=== PATIENT | female | born 1940 | race Two or more races ===

== ENCOUNTER 2022-05-30 12:45 | Inpatient (IN) | payer MEDICARE, OTHER ==
[~2022-05-30] VITALS: Ht 165.1 cm; Wt 62.6 kg
--- NOTE | 2022-05-30 13:03 | NUR ---
[facility], ALOC with hypoglycemia. BS - 50, 1 amp D50 IVP x 1 given in the field.
--- NOTE | 2022-05-30 13:15 | NUR ---
BLOOD DRAWN AND SENT TO LAB
--- NOTE | 2022-05-30 13:21 | NUR ---
urine - sent to lab
[2022-05-30] MEDS ORDERED: IV NS 0.9% 1,000 ML BAG IV ONE (13:30)
[2022-05-30 13:43] LABS: BASOPHILS # (AUTO) 0.1 K/uL (0.0-0.2); HEMATOCRIT 34 % (33-45); HEMOGLOBIN 11.3 g/dL (11.5-14.8); LYMPHOCYTES # (AUTO) 1.8 K/uL (0.8-4.8); LYMPHOCYTES % (AUTO) 21.8 % (20.0-44.0); MEAN CORPUSCULAR HGB CONC 33 g/dl (31.0-36.0); MEAN CORPUSCULAR VOLUME 98 fL (82-100); MONOCYTES # (AUTO) 0.3 K/uL (0.1-1.30); MONOCYTES % (AUTO) 3.1 % (2.0-12.0); NEUTROPHILS # (AUTO) 6.1 K/uL (1.8-8.9); NEUTROPHILS % (AUTO) 73.1 % (43.0-81.0); PLATELET COUNT (AUTO) 214 K/uL (150-450); RED BLOOD CELL COUNT(AUTO) 3.46 MIL/uL (4.0-5.2); WHITE BLOOD COUNT (AUTO) 8.3 K/uL (4.3-11.0)
[2022-05-30] MEDS ORDERED: DEXTROSE 50%-WATER 50 ML DISP.SYRIN ONE (13:56)
[2022-05-30 13:58] LABS: CALCIUM, SERUM 9.2 mg/dL (8.5-10.1); CARBON DIOXIDE 26 mmol/L (21-32); CHLORIDE 101 mmol/L (98-107); GLUCOSE 82 mg/dL (74-106); POTASSIUM 3.7 mmol/L (3.5-5.1); SODIUM SERUM 134 mmol/L (136-145); UREA NITROGEN, BLOOD 25 mg/dL (7-18)
[2022-05-30] MEDS ORDERED: DEXTROSE 50%-WATER 50 ML DISP.SYRIN IVP ONE (14:00)
--- NOTE | 2022-05-30 14:00 | NUR ---
RECHECKED GLU- 52 MD MADE AWARE ORDERS DEXTROSE 50% 25MLS GIVEN.
[2022-05-30 14:03] LABS: ALANINE AMINOTRANSFERASE 15 U/L (12-78); ALBUMIN 3.1 g/dL (3.4-5.0); ALKALINE PHOSPHATASE 84 U/L (46-116); ASPARTATE AMINOTRANSFERASE 20 U/L (15-37); BILIRUBIN,DIRECT 0.2 mg/dL (0.0-0.2); BILIRUBIN,TOTAL 0.6 mg/dL (0.2-1.0); TOTAL PROTEIN, SERUM 7.2 g/dL (6.4-8.2)
--- NOTE | 2022-05-30 14:10 | NUR ---
PATIENT TAKEN TO CT [facility]IA [facility]
--- NOTE | 2022-05-30 14:15 | NUR ---
PT RETURNED FROM [facility]IA [facility]
[2022-05-30 14:37] LABS: BILIRUBIN,URINE NEGATIVE (NEGATIVE); COLOR,URINE YELLOW (YELLOW); LEUKOCYTE ESTERASE ,URINE 1+ (NEGATIVE); NITRITE, URINE POSITIVE (NEGATIVE); PH,URINE 6.5 (5.0-8.0); PROTEIN,URINE 2+ mg/dl (NEGATIVE); UGLUCOSE NEGATIVE (NEGATIVE); UROBILINOGEN,URINE 0.2 EU/dL (0.2)
[2022-05-30] MEDS ORDERED: GLIP10TA11 PO (14:42)
[2022-05-30] MEDS ORDERED: HYDR100T27 PO (14:42)
[2022-05-30] MEDS ORDERED: MINO2.5T PO (14:42)
[2022-05-30] MEDS ORDERED: CLON1PAT14 TD (14:42)
[2022-05-30] MEDS ORDERED: GABA600T12 PO (14:42)
[2022-05-30] MEDS ORDERED: METF-440 PO (14:42)
[2022-05-30] MEDS ORDERED: ATOR10TA PO (14:42)
[2022-05-30] MEDS ORDERED: MULT-1200 PO (14:42)
[2022-05-30] MEDS ORDERED: CARV6.252 PO (14:42)
[2022-05-30] MEDS ORDERED: AMLO-213 PO (14:42)
[2022-05-30] MEDS ORDERED: ESCI5TAB PO (14:42)
--- NOTE | 2022-05-30 15:02 | NUR ---
SWAB FOR COVID19 SENT TO LAB
[2022-05-30 16:12] LABS: BACTERIA,URINE 4+ /HPF (None Seen)
[2022-05-30 16:13] LABS: TRIPLE PHOSPHATE CRYSTAL,UR Few /HPF (None Seen)
--- NOTE | 2022-05-30 16:29 | NUR ---
ROOM 327-2
[2022-05-30] MEDS ORDERED: ONDANSETRON HCL/PF 4 MG/2 ML VIAL IVP PRN (17:00)
[2022-05-30] MEDS ORDERED: IV NS 0.9% 1,000 ML IV SCH (17:00)
[2022-05-30] MEDS ORDERED: ACETAMINOPHEN 325 MG TABLET PO PRN (17:00)
[2022-05-30] MEDS ORDERED: CEFTRIAXONE 1GM BAG (ER ONLY) 1 GM/50 ML PIGGYBACK IV ONE (17:00)
[2022-05-30] MEDS ORDERED: DEXTROSE 50%-WATER 50 ML DISP.SYRIN IV PRN (17:00)
--- NOTE | 2022-05-30 17:04 | NUR ---
REPORT GIVEN TO AMMY RN ROOM 327-2 FOR ANKITA
--- NOTE | 2022-05-30 17:15 | NUR ---
RN NOTE PATIENT ARRIVED FROM ED FOR ADMISSION FOR HYPOGLYCEMIA. BEGIN ADMISSION PROCESS.
--- NOTE | 2022-05-30 17:16 | NUR ---
RADIOCOMMUNICATIONS TECHNICIAN NOTE- 81 Y/O FEMALE BROUGHT IN FROM ED FOR HYPOGLYCEMIA. ACCDORIE BS - 50. .PT IS FC WITH IODINE ALLERGY. PAST MEDICAL HX- DEMENTIA, HTN, UTI, DEPRESSION. NO COVID VACCS, PNA VACC IN 2017, GALLBLADDER SURG AND IN PAST. VS- BP- 126/66, HR- SR 68, RR- 18, T- 97.90, SATS 2 97% RA. NO COVID VACCINES REPORTED. AOX1, CONFUSED, SKIN INTACT, PT ON WCR AT HOME FOR MOBILITY. FAMILY AT BEDSIDE TO UPDATE ON HX. ORDERS RECEIVED AND COMPLIED WITH, SIDE RAILS UP, CALLIGHT IN REACH, MONITOR/ ASSIST
[2022-05-30] MEDS: BLOOD SUGAR DIAGNOSTIC 1 EACH STRIP IN SCH ×2 (17:30→22:00)
[2022-05-30 18:31] VITALS: BP 148/76
--- NOTE | 2022-05-30 18:48 | NUR ---
RN NOTE- IVF TO BE D5 1/2 NS AT 75/HR. PER DR SALAZAR.
--- NOTE | 2022-05-30 18:58 | NUR ---
MOLD CHECKER CLOSING NOTE PATIENT AWAKE IN BED. ALERT AND ORIENTED X1 WITH PERIODS OF CONFUSION. BREATHING EVEN AND NON LABORED. NO C/O PAIN OR DISCOMFORT THROUGHOUT THE SHIFT. ON TELE MONITORING WITH CURRENT READING OF SR. WITH IV ACCESS ON R FOREARM 20G, INTACT AND PATENT. SAFETY MEASURES IN PLACE. KEPT BED IN LOCKED AND IN LOW POSITION. SIDE RAILS UP X3. BED ALARM ON. CALL LIGHT WITHIN EASY REACH. ALL NURSING NEEDS ATTENDED. ENDORSED TO INCOMING SHIFT FOR CONTINUITY OF CARE.
--- NOTE | 2022-05-30 19:15 | NUR ---
SPANISH INSTRUCTOR OPENING NOTE PATIENT IS LYING IN BED. SHE IS AWAKE BUT VERY CONFUSED. SHE IS ON RA, TOLERATED WELL. NO S/S OF DISTRESS OR SOB. PATIENT HAS IV ACCESS AT HER RIGHT FA, #2OG, RUNNING ANTIBIOTICS NOW. IV SITE IS PATENT AND INTACT. 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 SAFETY MEASURES ARE IN PLACE: BED IN LOWEST AND LOCKED POSITION; CALL LIGHT AND TABLE ARE WITHIN REACH; SIDE RAILS UP X 3. WILL CONTINUE MONITORING THE PATIENT AND PROVIDE THE CARE PT NEEDS.
[2022-05-30] MEDS ORDERED: CEFTRIAXONE 1GM BAG (ER ONLY) 50 ML IV ONE (19:17)
--- NOTE | 2022-05-30 19:23 | NUR ---
RN NOTE CONTACTED ER REGARDING ROCEPHIN IV WHETHER IS GIVEN OR NOT, CLARIFIED WITH FELIX, ROCEPHIN DOSE WAS NOT GIVEN AT ER. RECEIVED AND ADMINISTERED ROCEPHIN IV DOSE OF 1700 AT 1923.
[2022-05-30] MEDS: IV D5/0.45 NACL 1,000 ML IV SCH (19:58)
[2022-05-30 20:00] VITALS: BP 136/63
[2022-05-30] MEDS: ATORVASTATIN 10 MG TABLET PO SCH (21:28)
--- NOTE | 2022-05-30 21:30 | NUR ---
SALES AMBASSADOR NOTE TOOK OUT THE WRONG DOSAGE OF MEDICATION FROM THE OMNICELL, GABAPENTIN 400 MG X 2 CAPSULES. RETURNED THE MEDICATIONS THROUGH THE OMNICELL AND TOOK OUT THE CORRECT MEDICATION, GABAPENTIN 300 MG X 2 CAPSULES. ADMINISTERED THE CORRECT MEDICATIONS TO THE PATIENT.
[2022-05-30] MEDS: GABAPENTIN 300 MG CAPSULE PO SCH (21:33)
[2022-05-31] VITALS: BP 120/58
[2022-05-31 04:00] VITALS: BP 123/59
[2022-05-31] MEDS: BLOOD SUGAR DIAGNOSTIC 1 EACH STRIP IN SCH ×4 (06:30→21:26)
--- NOTE | 2022-05-31 06:55 | NUR ---
MICROWAVE RADIO TECHNICIAN CLOSING NOTE PATIENT IS SLEEPING IN BED, EASILY BEING AROUSED. SHE IS VERY CONFUSED. SHE IS ON RA, TOLERATED WELL. NO S/S OF DISTRESS OR SOB. PATIENT HAS IV ACCESS AT HER RIGHT FA, #2OG, RUNNING D5 1/2NS @75 ML/HR. IV SITE IS PATENT AND INTACT. 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 SAFETY MEASURES ARE IN PLACE: BED IN LOWEST AND LOCKED POSITION; CALL LIGHT AND TABLE ARE WITHIN REACH; SIDE RAILS UP X 3. WILL ENDORSE NEXT SHIFT NURSE FOR CONTINUING PT CARE.
[2022-05-31 07:00] VITALS: BP 125/80
--- NOTE | 2022-05-31 07:09 | NUR ---
DOORMAKER OPENING NOTES RECEIVED PATIENT AWAKE IN BED, A/Ox1, YI SPEAKING. ON ROOM AIR NO S/S OF RESPIRATORY DISTRESS. ON TELE MONITORING SHOWING SINUS RHYTHM W/ 1ST DEGREE BLOCK HR 79. NO S/S OF RESPIRATORY DISTRESS. IV ACCESS R FA #20 RUNNING D5 1/2 NS @75 ML/HR. PATIENT HAS BILATERAL MITTENS, SKIN INTACT, CIRCULATION WNL. SKIN INTACT. SAFETY MEASURES IN PLACE: BED LOCKED AND IN LOWEST POSITION, SIDE RAILS UPx3, CALL LIGHT WITHIN REACH, HOB ELEVATED. TANVIR CONTINUE TO MONITOR.
[2022-05-31 07:14] LABS: BASOPHILS % (AUTO) 0.6 % (0.0-2.0); HEMATOCRIT 30 % (33-45); LYMPHOCYTES # (AUTO) 2.3 K/uL (0.8-4.8); LYMPHOCYTES % (AUTO) 42.2 % (20.0-44.0); MEAN CORPUSCULAR HGB CONC 34 g/dl (31.0-36.0); MEAN CORPUSCULAR VOLUME 99 fL (82-100); MONOCYTES # (AUTO) 0.4 K/uL (0.1-1.30); MONOCYTES % (AUTO) 7.9 % (2.0-12.0); NEUTROPHILS # (AUTO) 2.6 K/uL (1.8-8.9); NEUTROPHILS % (AUTO) 46.3 % (43.0-81.0); PLATELET COUNT (AUTO) 183 K/uL (150-450); RED BLOOD CELL COUNT(AUTO) 3.03 MIL/uL (4.0-5.2); WHITE BLOOD COUNT (AUTO) 5.5 K/uL (4.3-11.0)
[2022-05-31 07:40] LABS: ALANINE AMINOTRANSFERASE 20 U/L (12-78); ALBUMIN 2.7 g/dL (3.4-5.0); ALKALINE PHOSPHATASE 73 U/L (46-116); ASPARTATE AMINOTRANSFERASE 24 U/L (15-37); BILIRUBIN,TOTAL 0.6 mg/dL (0.2-1.0); CALCIUM, SERUM 8.7 mg/dL (8.5-10.1); CARBON DIOXIDE 27 mmol/L (21-32); CHLORIDE 104 mmol/L (98-107); CREATININE 0.9 mg/dL (0.6-1.3); GLUCOSE 122 mg/dL (74-106); PHOSPHORUS 3.1 mg/dL (2.5-4.9); POTASSIUM 3.6 mmol/L (3.5-5.1); SODIUM SERUM 136 mmol/L (136-145); TOTAL PROTEIN, SERUM 6.5 g/dL (6.4-8.2); UREA NITROGEN, BLOOD 18 mg/dL (7-18)
[2022-05-31] MEDS: GABAPENTIN 300 MG CAPSULE PO SCH ×4 (08:43→20:18)
[2022-05-31] MEDS: ESCITALOPRAM OXALATE (10 MG) 10 MG TABLET PO SCH (08:43)
[2022-05-31] MEDS: MINOXIDIL (2.5MG) 2.5 MG TABLET PO SCH ×2 (08:44→17:05)
[2022-05-31] MEDS: AMLODIPINE BESYLATE 10 MG TABLET PO SCH (08:46)
[2022-05-31] MEDS: CARVEDILOL 6.25 MG TABLET PO SCH ×2 (08:46→17:05)
[2022-05-31] MEDS: hydrALAZINE HCL 50 MG TABLET PO SCH ×3 (08:47→17:06)
[2022-05-31] MEDS: IV D5/0.45 NACL 1,000 ML IV SCH ×2 (08:48→21:54)
[2022-05-31] MEDS: MULTIPLE VIT (LYCOPENE/FA/MV,CA,IRON,MIN/LUT)1 TAB PO SCH (08:52)
[2022-05-31] MEDS ORDERED: GABA600T12 PO (11:19)
[2022-05-31] MEDS ORDERED: AMLO-213 PO (11:19)
[2022-05-31] MEDS ORDERED: MULT-1200 PO (11:19)
[2022-05-31] MEDS ORDERED: EMPA25TA PO (11:19)
[2022-05-31] MEDS ORDERED: CARV6.252 PO (11:19)
[2022-05-31] MEDS ORDERED: HYDR100T27 PO (11:19)
[2022-05-31] MEDS ORDERED: METF-440 PO (11:19)
[2022-05-31] MEDS ORDERED: ATOR10TA PO (11:19)
[2022-05-31] MEDS ORDERED: ESCI5TAB PO (11:19)
[2022-05-31] MEDS ORDERED: MINO2.5T PO (11:19)
[2022-05-31] MEDS: INSULIN REGULAR, HUMAN 100 UNIT/ML 3 ML VIAL SQ PRN ×3 (12:28→21:32)
--- NOTE | 2022-05-31 13:56 | NUR ---
RN NOTES PATIENT RESTING IN BED, MITTENS OCCASIONALLY TAKEN OFF. BUT PATIENT REORIENTED. Q15 MIN CHECKS DONE. SKIN INTACT, CIRCULATION WNL, WILL CONTINUE TO MONITOR.
[2022-05-31] MEDS: CEFTRIAXONE 1 G in IV D5W 50 ML IV SCH (17:10)
--- NOTE | 2022-05-31 19:06 | NUR ---
COLD WORK OPERATOR CLOSING NOTES PATIENT AWAKE IN BED, A/Ox1, CROATIAN SPEAKING. ON ROOM AIR NO S/S OF RESPIRATORY DISTRESS. ON TELE MONITORING SHOWING SINUS RHYTHM W/ 1ST DEGREE BLOCK HR 80. NO S/S OF RESPIRATORY DISTRESS. IV ACCESS R FA #20 RUNNING D5 1/2 NS @75 ML/HR. PATIENT HAS BILATERAL MITTENS, SKIN INTACT, CIRCULATION WNL. SKIN INTACT. SAFETY MEASURES MAINTAINED: BED LOCKED AND IN LOWEST POSITION, SIDE RAILS UPx3, CALL LIGHT WITHIN REACH, HOB ELEVATED. WILL ENDORSE TO NEXT SHIFT ANY ANKITA.
--- NOTE | 2022-05-31 19:30 | NUR ---
CAR PICK UP DRIVER OPENING NOTE RECEIVED PATIENT IN BED, AWAKE, ALERT AND ORIENTED X1, WITH DAUGHTER AT BEDSIDE. AFEBRILE AND NOT IN ANY FORM OF ACUTE DISTRESS. BREATHING EVEN AND NON LABORED. NO C/O PAIN OR DISCOMFORT AT THIS TIME. ON TELE MONITORING WITH CURRENT READING OF SR 87. WITH BILATERAL MITTENS, SKIN NOTED WITH GOOD CIRCULATION AND INTEGRITY. WITH IV ACCESS ON R FOREARM 20G RUNNING WITH D5 1/2NS AT 75ML/HR. SAFETY MEASURES IN PLACE. KEPT BED IN LOCKED AND IN LOW POSITION. SIDE RAILS UP X2. CALL LIGHT WITHIN EASY REACH.
[2022-05-31] MEDS: ATORVASTATIN 10 MG TABLET PO SCH (21:26)
[2022-05-31] MEDS ORDERED: LORAZEPAM INJ 2 MG/ML VIAL IV PRN (23:30)
--- NOTE | 2022-06-01 06:26 | NUR ---
KILN LOADER CLOSING NOTE PATIENT IN BED, WITH HOB ELEVATED, SLEEPING INTERMITTENTLY, ALERT AND ORIENTED X1 WITH CONFUSION. AFEBRILE AND NOT IN ANY FORM OF ACUTE DISTRESS. BREATHING EVEN AND NON LABORED. NO C/O PAIN OR DISCOMFORT AT THIS TIME. ON TELE MONITORING WITH CURRENT READING OF SR 68. WITH BILATERAL MITTENS, SKIN NOTED WITH GOOD CIRCULATION AND INTEGRITY. WITH IV ACCESS ON R FOREARM 20G RUNNING WITH D5 1/2NS AT 75ML/HR. MONITORED FOR ANY S/SX. OF HYPO/HYPERGLYCEMIA. MEDICATED ORDERED. SAFETY MEASURES IN PLACE. KEPT BED IN LOCKED AND IN LOW POSITION. SIDE RAILS UP X2. CALL LIGHT WITHIN EASY REACH. ALL NURSING NEEDS ATTENDED. ENDORSED TO INCOMING SHIFT FOR CONTINUITY OF CARE.
[2022-06-01] MEDS: BLOOD SUGAR DIAGNOSTIC 1 EACH STRIP IN SCH ×4 (06:33→21:55)
[2022-06-01] MEDS: INSULIN REGULAR, HUMAN 100 UNIT/ML 3 ML VIAL SQ PRN ×4 (06:35→22:18)
[2022-06-01 07:00] VITALS: BP 173/97
--- NOTE | 2022-06-01 07:29 | NUR ---
ARMATURE WINDER REPAIRER OPENING NOTE RECEIVED PT ASLEEP IN BED, EASILY AROUSED. PT IS A/OX1, CONFUSED. REORIENTED PT NEEDED. ON ROOM AIR, TOLERATING WELL. NO SOB NOTED. NOT IN ANY SIGN OF RESPIRATORY DISTRESS. PT IS ON CARDIAC TELE MONITOR WITH CURRENT READING OF SINUS RHYTHM, HR 74. NO C/O CARDIAC DISTRESS VOICED OUT AT THIS TIME. IV ACCESS ON RFA G#20 INTACT AND PATENT WITH D5 1/2 NS INFUSING AT 75ML/HR. SAFETY MEASURES IN PLACE: BED IN LOWEST AND LOCKED POSITION, SIDE RAILS UPX2, BED ALARM ON, AND CALL LIGHT WITHIN REACH. WILL CONTINUE TO MONITOR PT.
[2022-06-01 08:01] LABS: ALBUMIN 3.1 g/dL (3.4-5.0); BILIRUBIN,TOTAL 0.7 mg/dL (0.2-1.0); CALCIUM, SERUM 9.3 mg/dL (8.5-10.1); CREATININE 0.9 mg/dL (0.6-1.3); POTASSIUM 3.4 mmol/L (3.5-5.1); TOTAL PROTEIN, SERUM 7.4 g/dL (6.4-8.2)
[2022-06-01] MEDS: ESCITALOPRAM OXALATE (10 MG) 10 MG TABLET PO SCH (09:30)
[2022-06-01] MEDS: GABAPENTIN 300 MG CAPSULE PO SCH ×4 (09:30→21:19)
[2022-06-01] MEDS: AMLODIPINE BESYLATE 10 MG TABLET PO SCH (09:30)
[2022-06-01] MEDS: CARVEDILOL 6.25 MG TABLET PO SCH ×2 (09:31→16:10)
[2022-06-01] MEDS: hydrALAZINE HCL 50 MG TABLET PO SCH ×3 (09:31→16:10)
[2022-06-01] MEDS: MINOXIDIL (2.5MG) 2.5 MG TABLET PO SCH ×2 (09:32→16:11)
[2022-06-01] MEDS: MULTIPLE VIT (LYCOPENE/FA/MV,CA,IRON,MIN/LUT)1 TAB PO SCH (09:35)
[2022-06-01] MEDS ORDERED: POTASSIUM CHLORIDE 20 MEQ TAB.PRT.SR PO SCH (11:00)
[2022-06-01] MEDS: HEPARIN SODIUM, PORCINE 5000 UNITS/1 ML VIAL SQ SCH ×2 (11:57→21:21)
[2022-06-01 12:00] VITALS: BP 152/73
[2022-06-01] MEDS ORDERED: BLOO-1280 MC (12:54)
[2022-06-01 16:00] VITALS: BP 108/64
[2022-06-01] MEDS: CEFTRIAXONE 1 G in IV D5W 50 ML IV SCH (16:10)
--- NOTE | 2022-06-01 18:41 | NUR ---
SANDING MACHINE BUFFER CLOSING NOTE PT ASLEEP IN BED, EASILY AROUSED. PT IS A/OX1, CONFUSED. REORIENTED PT NEEDED. ON ROOM AIR, TOLERATING WELL. NO SOB NOTED. NOT IN ANY SIGN OF RESPIRATORY DISTRESS. PT IS ON CARDIAC TELE MONITOR WITH CURRENT READING OF SINUS MALACHI, HR 58. NO C/O CARDIAC DISTRESS VOICED OUT AT THIS TIME. IV ACCESS ON RFA G#20 INTACT AND PATENT. ALL NEEDS ATTENDED. KEPT CLEAN AND COMFORTABLE AT ALL TIMES. TURNED AND REPOSITIONED Q2HRS AND NEEDED. SAFETY MEASURES IN PLACE: BED IN LOWEST AND LOCKED POSITION, SIDE RAILS UPX2, BED ALARM ON, AND CALL LIGHT WITHIN REACH. WILL ENDORSE TO FORGING MACHINE OPERATOR NURSE FOR ANKITA.
--- NOTE | 2022-06-01 19:42 | NUR ---
TELE RETAIL PARTS PROFESSIONAL INITIAL NOTES RECEIVED PT IN BED RESTING WITH EYES CLOSED ,BREATHING EVEN AND NON-LABORED, NOT IN ANY ACUTE DISTRESS NOTED. SKIN WARM AND DRY TO TOUCH. ON TELE SINUS MALACHI PER MONITOR. KEPT HER WARM AND COMFORTABLE AT ALL TIMES. BED IN LOW AND LOCK IN POSITION WITH SIDE RAILS X3 UP AND BED ALARM SET FOR SAFETY. WILL CONTINUE MONITORING.
[2022-06-01] MEDS: ATORVASTATIN 10 MG TABLET PO SCH (21:54)
--- NOTE | 2022-06-01 22:00 | NUR ---
tele manager business intelligence notes routine meds given with apple sauce and pt tolerated well no aspiration noted. Blood sugar checked done 130, no insulin coverages at this time per level ordered. No signs of hypo glycemia noted. Kept her warm and comfortable at all times. will continue monitoring.
--- NOTE | 2022-06-02 00:32 | NUR ---
tele retail merchandising manager notes Pt sleeping at this time. No signs of any acute distress noted. one of her Mittens released for now. skin warm and pulse present . kept her warm and comfortable at all times. will continue monitoring.
[2022-06-02 06:30] LABS: ALANINE AMINOTRANSFERASE 24 U/L (12-78); ALBUMIN 2.8 g/dL (3.4-5.0); ALKALINE PHOSPHATASE 78 U/L (46-116); ASPARTATE AMINOTRANSFERASE 21 U/L (15-37); BILIRUBIN,TOTAL 0.5 mg/dL (0.2-1.0); CALCIUM, SERUM 9.3 mg/dL (8.5-10.1); CARBON DIOXIDE 29 mmol/L (21-32); CHLORIDE 106 mmol/L (98-107); GLUCOSE 141 mg/dL (74-106); POTASSIUM 3.4 mmol/L (3.5-5.1); SODIUM SERUM 141 mmol/L (136-145); TOTAL PROTEIN, SERUM 6.7 g/dL (6.4-8.2); UREA NITROGEN, BLOOD 14 mg/dL (7-18)
--- NOTE | 2022-06-02 07:15 | NUR ---
HEATING AND VENTILATING WORKER OPENING NOTE RECEIVED PT AWAKE IN BED,PT IS A/OX1, CONFUSED. [place]ER SPEAKING. TOLERATING ROOM AIR WITH NO SOB NOR ANY APPARENT DISTRESS NOTED. ON TELE MONITOR WITH READING OF SINUS MALACHI AT 56 HR WITH BORDERLINE FIRST DEGREE BLOCK. IV ACCESS ON RFA G#20 INTACT SALINE LOCKED, PATENT, FLUSHING WELL AND COVERED BY ARM SLEEVE. PATIENT IS ON SOFT MITTENS ON HER LEFT HAND, TRYING TO REMOVE IT WITH THE RIGHT HARD. REORIENTED PATIENT AND WENT BACK TO SLEEP. SAFETY MEASURES IN PLACE: BED IN LOWEST AND LOCKED POSITION, SIDE RAILS UPX2, BED ALARM ON, AND CALL LIGHT AND TRAY TABLE WITHIN REACH. WILL CONTINUE TO MONITOR PT.
--- NOTE | 2022-06-02 07:47 | NUR ---
tele chief wellness officer closing notes Pt awake and alert with confusion at times. She still on mittens but left only at this time. Re-oriented why she needs it with the helped of GIS APPLICATION DEVELOPER to translate. and pt understood well. all due meds given and all needs met. Stable throughout the night. Tele SR per monitor. Kept her warm and comfortable at all times. Bed in low and lock in position with side rails x2 up ,bed alarm set for safety. endorse to am nurse for continuity of care.
[2022-06-02] MEDS: BLOOD SUGAR DIAGNOSTIC 1 EACH STRIP IN SCH ×2 (08:24→12:46)
[2022-06-02] MEDS: MINOXIDIL (2.5MG) 2.5 MG TABLET PO SCH ×2 (09:00→17:00)
[2022-06-02] MEDS ORDERED: NITROFURANTOIN/MONOHYDRATE MACROCRYSTALS 100 MG CAPSULE PO SCH (09:00)
[2022-06-02] MEDS: GABAPENTIN 300 MG CAPSULE PO SCH ×3 (09:03→17:00)
[2022-06-02] MEDS: hydrALAZINE HCL 50 MG TABLET PO SCH ×3 (09:03→17:00)
[2022-06-02] MEDS: MULTIPLE VIT (LYCOPENE/FA/MV,CA,IRON,MIN/LUT)1 TAB PO SCH (09:03)
[2022-06-02] MEDS: CARVEDILOL 6.25 MG TABLET PO SCH ×2 (09:04→17:00)
[2022-06-02] MEDS: ESCITALOPRAM OXALATE (10 MG) 10 MG TABLET PO SCH (09:04)
[2022-06-02] MEDS: AMLODIPINE BESYLATE 10 MG TABLET PO SCH (09:05)
[2022-06-02] MEDS: INSULIN REGULAR, HUMAN 100 UNIT/ML 3 ML VIAL SQ PRN ×2 (09:06→12:47)
[2022-06-02] MEDS: HEPARIN SODIUM, PORCINE 5000 UNITS/1 ML VIAL SQ SCH (09:07)
--- NOTE | 2022-06-02 10:30 | NUR ---
RN NOTES - DAUGHTER ZARA AT BEDSIDE, ANSWERED ALL QUESTIONS
[2022-06-02] MEDS ORDERED: POTASSIUM CHLORIDE 20 MEQ TAB.PRT.SR PO SCH (11:00)
[2022-06-02] MEDS ORDERED: POTASSIUM CL. PREMIX PERIPHER. 50 ML IV SCH (11:00)
[2022-06-02] MEDS ORDERED: NITR100C15 PO (12:03)
[2022-06-02] MEDS ORDERED: MINO2.5T PO (12:03)
[2022-06-02] MEDS ORDERED: ATOR20TA PO (12:03)
--- NOTE | 2022-06-02 15:30 | NUR ---
RN NOTES - RESTRAINTS DC'D PATIENT CALM, COOPERATIVE, NOT PULLING LINES
[2022-06-02 17:00] VITALS: BP 125/67
--- NOTE | 2022-06-02 17:07 | NUR ---
INFECTIOUS DISEASE PHYSICIAN DISCHARGE NOTE PT DISCHARGED TO HOME IN STABLE CONDITION. PT AOX1-2, ITALIAN SPEAKING, UNABLE TO FULLY MAKE NEEDS KNOWN, ON ROOM AIR, TOLERATING WELL. NO SOB NOTED, NOT IN ANY FORM OF APPARENT DISTRESS. LAST TELE READING WAS SINUS RHYTHM AT 68 HR. VITAL SIGNS TAKEN, STABLE AND RECORDED. PT'S SKIN IS INTACT. DENIES PAIN OR DISCOMFORT AT THIS TIME. NO BELONGINGS. DISCHARGE INSTRUCTIONS GIVEN TO DAUGHTER ZARA. RFA IV ACCESS REMOVED, NO BLEEDING NOTED, PRESSURE DRESSING APPLIED. PT LEFT THE UNIT AT 1705 VIA [employer] BY 2 INTERNATIONAL CONTROLLER. CALLED DAUGHTER TO INFORM DC. PEARSON AND CHARGE NURSE AWARE.
== END 2022-06-02 17:10 | disposition home health service (06) | DRG 917 ==
LOC: ER 13:13 → TELE 17:04
PROVIDERS: ADMIT Internal Medicine; ATTEND Internal Medicine
DX: T38.3X1A Poisoning by insulin and oral hypoglycemic [antidiabetic] drugs, accidental (unintentional), initial encounter (principal); G93.41 Metabolic encephalopathy; N39.0 Urinary tract infection, site not specified; E87.1 Hypo-osmolality and hyponatremia; F03.93 Unspecified dementia, unspecified severity, with mood disturbance; Z20.822 Contact with and (suspected) exposure to COVID-19; Z88.5 Allergy status to narcotic agent; Z88.0 Allergy status to penicillin; Z88.6 Allergy status to analgesic agent; Z91.041 Radiographic dye allergy status; Z79.84 Long term (current) use of oral hypoglycemic drugs; Z79.899 Other long term (current) drug therapy; D64.9 Anemia, unspecified; I10 Essential (primary) hypertension; Z88.2 Allergy status to sulfonamides; E11.649 Type 2 diabetes mellitus with hypoglycemia without coma; Y92.009 Unspecified place in unspecified non-institutional (private) residence as the place of occurrence of the external cause; F32.A Depression, unspecified; F39 Unspecified mood [affective] disorder
CPT/HCPCS: 36415; 70450-TC; 71045-TC; 80048-TC; 80053-TC; 80076-TC; 81001; 82962-TC; 83605-TC; 83735-TC; 84100-TC; 84484-TC; 85025-TC; 87040-TC; 87081-TC; 87086-TC; 97112-TC; 97530-TC; C9803; G0378; J0696; J1644; J1815; J2060; J3490; J7030; J7060

== ENCOUNTER 2023-05-15 12:46 | Inpatient (IN) | payer MEDICARE, OTHER ==
[~2023-05-15] VITALS: Ht 152.4 cm; Wt 43.1 kg
[~2023-05-15 12:46] MED LIST: AMLO-213 PO; ATOR20TA PO; BLOO-668 IN; CARV6.252 PO; ESCI5TAB PO; GABA600T12 PO; HYDR-4077 PO; LISI40TA13 PO; METF-440 PO; MULT-1200 PO; NITR100C PO; OLAN5TAB3 PO; REPA1TAB7 PO
[2023-05-15 14:24] LABS: BASOPHILS % (AUTO) 0.3 % (0.0-2.0); EOSINOPHILS # (AUTO) 0.2 K/uL (0.0-0.7); EOSINOPHILS % (AUTO) 2.5 % (0.0-6.0); HEMATOCRIT 33 % (33-45); HEMOGLOBIN 10.9 g/dL (11.5-14.8); LYMPHOCYTES % (AUTO) 27.7 % (20.0-44.0); MEAN CORPUSCULAR HEMOGLOBIN 34 PG (26.0-33.0); MEAN CORPUSCULAR HGB CONC 34 g/dl (31.0-36.0); MEAN CORPUSCULAR VOLUME 101 fL (82-100); MONOCYTES # (AUTO) 0.3 K/uL (0.1-1.30); NEUTROPHILS # (AUTO) 4.7 K/uL (1.8-8.9); NEUTROPHILS % (AUTO) 65.5 % (43.0-81.0); PLATELET COUNT (AUTO) 213 K/uL (150-450); RED BLOOD CELL COUNT(AUTO) 3.21 MIL/uL (4.0-5.2); RED CELL DISTRIBUTION WIDTH 15.5 % (11.5-15.0); WHITE BLOOD COUNT (AUTO) 7.2 K/uL (4.3-11.0)
[2023-05-15 14:43] LABS: CALCIUM, SERUM 10.7 mg/dL (8.5-10.1); CARBON DIOXIDE 33 mmol/L (21-32); CHLORIDE 99 mmol/L (98-107); CREATININE 0.6 mg/dL (0.6-1.3); GLUCOSE 117 mg/dL (74-106); POTASSIUM 4.5 mmol/L (3.5-5.1); SODIUM SERUM 136 mmol/L (136-145); UREA NITROGEN, BLOOD 20 mg/dL (7-18)
[2023-05-15 14:47] LABS: LACTIC ACID 2.6 mmol/L (0.4-2.0)
[2023-05-15 14:48] LABS: ALANINE AMINOTRANSFERASE 15 U/L (12-78); ALBUMIN 2.7 g/dL (3.4-5.0); ALKALINE PHOSPHATASE 82 U/L (46-116); ASPARTATE AMINOTRANSFERASE 17 U/L (15-37); BILIRUBIN,DIRECT 0.1 mg/dL (0.0-0.2); BILIRUBIN,TOTAL 0.3 mg/dL (0.2-1.0)
[2023-05-15] MEDS: IV NS 0.9% 500 ML BAG IV ONE (15:04)
[2023-05-15] MEDS ORDERED: LEVOFLOXACIN 750 MG /D5W 150ML 150 ML IV ONE (15:08)
[2023-05-15 15:14] LABS: APPEARANCE,URINE SLIGHTLY CLOUDY (CLEAR); BILIRUBIN,URINE NEGATIVE (NEGATIVE); BLOOD, URINE NEGATIVE Ery/uL (NEGATIVE); COLOR,URINE YELLOW (YELLOW); KETONES,URINE NEGATIVE (NEGATIVE); LEUKOCYTE ESTERASE ,URINE 2+ (NEGATIVE); NITRITE, URINE NEGATIVE (NEGATIVE); PH,URINE 8.5 (5.0-8.0); PROTEIN,URINE TRACE mg/dl (NEGATIVE); UGLUCOSE NEGATIVE (NEGATIVE); UROBILINOGEN,URINE 0.2 EU/dL (0.2)
[2023-05-15] MEDS: LEVOFLOXACIN 750 MG /D5W 150ML 150 ML IV ONE (15:31)
[2023-05-15] MEDS ORDERED: MELA5TAB PO (15:34)
[2023-05-15 16:32] LABS: ADD URINE CULTURE YES; BACTERIA,URINE 3+ /HPF (None Seen); RBC,URINE 0-2 /HPF (0-2); WBC,URINE 21-50 /HPF (0-3)
[2023-05-15 17:11] LABS: INR 0.96 (0.91-1.10); PARTIAL THROMBOPLASTIN TIME 22.9 SEC (24.3-34.3); PROTHROMBIN TIME 10.2 SECS (9.2-11.1)
[2023-05-15] MEDS ORDERED: Z GUARD REMEDY 4 OZ OINT TP PRN (17:30)
[2023-05-15] MEDS ORDERED: ONDANSETRON HCL/PF 4 MG/2 ML VIAL IVP PRN (17:30)
[2023-05-15] MEDS ORDERED: MAGNESIUM HYDROXIDE 30 ML UDC PO PRN (17:30)
[2023-05-15] MEDS ORDERED: DEXTROSE 50%-WATER 50 ML DISP.SYRIN IV PRN (17:30)
[2023-05-15] MEDS ORDERED: LEVOFLOXACIN 750 MG /D5W 150ML 750 MG in PREMIX 1 EA IV SCH (18:00)
[2023-05-15] MEDS ORDERED: ENOXAPARIN SODIUM 40 MG/0.4 ML DISP.SYRIN SQ SCH (18:00)
[2023-05-15 20:00] VITALS: BP 130/79; TEMP 98.6; O2SAT 96
[2023-05-15] MEDS: IV NS 0.9% 1,000 ML IV PRN (20:21)
[2023-05-15] MEDS ORDERED: Medication Not On Formulary EA (Melatonin 5 MG) PO SCH (22:00)
[2023-05-15] MEDS: BLOOD SUGAR DIAGNOSTIC 1 EACH STRIP IN SCH (22:09)
[2023-05-15] MEDS: INSULIN REGULAR, HUMAN 100 UNIT/ML 3 ML VIAL SQ PRN (22:09)
[2023-05-15] MEDS: OLANZAPINE 5 MG TABLET PO SCH (22:56)
[2023-05-15] MEDS: GABAPENTIN 300 MG CAPSULE PO SCH (22:57)
[2023-05-15] MEDS: ENOXAPARIN SODIUM 40 MG/0.4 ML DISP.SYRIN SQ SCH (23:02)
[2023-05-16 07:14] LABS: BASOPHILS % (AUTO) 0.2 % (0.0-2.0); EOSINOPHILS # (AUTO) 0.2 K/uL (0.0-0.7); EOSINOPHILS % (AUTO) 3.6 % (0.0-6.0); HEMATOCRIT 29 % (33-45); HEMOGLOBIN 9.8 g/dL (11.5-14.8); LYMPHOCYTES # (AUTO) 2.3 K/uL (0.8-4.8); LYMPHOCYTES % (AUTO) 38.4 % (20.0-44.0); MEAN CORPUSCULAR HEMOGLOBIN 34 PG (26.0-33.0); MEAN CORPUSCULAR HGB CONC 34 g/dl (31.0-36.0); MEAN CORPUSCULAR VOLUME 101 fL (82-100); MONOCYTES # (AUTO) 0.5 K/uL (0.1-1.30); MONOCYTES % (AUTO) 7.5 % (2.0-12.0); NEUTROPHILS # (AUTO) 3.1 K/uL (1.8-8.9); NEUTROPHILS % (AUTO) 50.3 % (43.0-81.0); PLATELET COUNT (AUTO) 194 K/uL (150-450); RED BLOOD CELL COUNT(AUTO) 2.85 MIL/uL (4.0-5.2); RED CELL DISTRIBUTION WIDTH 15.1 % (11.5-15.0); WHITE BLOOD COUNT (AUTO) 6.1 K/uL (4.3-11.0)
[2023-05-16 07:30] VITALS: BP 158/76; TEMP 97.7; O2SAT 95
[2023-05-16 08:12] LABS: CALCIUM, SERUM 9.9 mg/dL (8.5-10.1); CARBON DIOXIDE 31 mmol/L (21-32); CHLORIDE 106 mmol/L (98-107); CREATININE 0.5 mg/dL (0.6-1.3); GLUCOSE 81 mg/dL (74-106); MAGNESIUM 1.2 mg/dL (1.8-2.4); PHOSPHORUS 1.6 mg/dL (2.5-4.9); POTASSIUM 3.3 mmol/L (3.5-5.1); SODIUM SERUM 140 mmol/L (136-145); UREA NITROGEN, BLOOD 13 mg/dL (7-18)
[2023-05-16] MEDS: AMLODIPINE BESYLATE 10 MG TABLET PO SCH (09:28)
[2023-05-16] MEDS: LISINOPRIL (20MG) 20 MG TABLET PO SCH (09:28)
[2023-05-16] MEDS: CARVEDILOL 6.25 MG TABLET PO SCH (09:29)
[2023-05-16] MEDS: ESCITALOPRAM OXALATE (10 MG) 10 MG TABLET PO SCH (09:29)
[2023-05-16] MEDS: POTASSIUM CHLORIDE 20 MEQ TAB.PRT.SR PO SCH (09:33)
[2023-05-16] MEDS: MAGNESIUM OXIDE 400 MG TABLET PO ONE (09:34)
[2023-05-16] MEDS: MULTIPLE VIT (LYCOPENE/FA/MV,CA,IRON,MIN/LUT)1 TAB PO SCH (11:28)
[2023-05-16] MEDS: GLUCERNA SHAKE 237 ML CAN PO SCH (12:04)
[2023-05-16] MEDS: PROSOURCE / PROSTAT (PYXIS) 30 ML UDC PO SCH (13:14)
[2023-05-16] MEDS: LEVOFLOXACIN 750 MG /D5W 150ML 750 MG in PREMIX 1 EA IV SCH (14:51)
[2023-05-16] MEDS: K PHOS NEUTRAL 250 MG TABLET PO ONE (15:19)
[2023-05-16 16:00] VITALS: BP 136/74; TEMP 97.7; O2SAT 97
[2023-05-16 21:48] VITALS: BP 120/70; TEMP 98.2; O2SAT 97
[2023-05-17 04:18] VITALS: BP 120/70; TEMP 98.2; O2SAT 97
[2023-05-17 07:00] VITALS: BP 151/80; TEMP 97.7; O2SAT 100
[2023-05-17 07:46] LABS: BASOPHILS % (AUTO) 0.2 % (0.0-2.0); EOSINOPHILS # (AUTO) 0.2 K/uL (0.0-0.7); HEMATOCRIT 28 % (33-45); HEMOGLOBIN 9.6 g/dL (11.5-14.8); LYMPHOCYTES # (AUTO) 2.1 K/uL (0.8-4.8); LYMPHOCYTES % (AUTO) 35.3 % (20.0-44.0); MEAN CORPUSCULAR HEMOGLOBIN 34 PG (26.0-33.0); MEAN CORPUSCULAR HGB CONC 34 g/dl (31.0-36.0); MEAN CORPUSCULAR VOLUME 101 fL (82-100); MONOCYTES # (AUTO) 0.4 K/uL (0.1-1.30); MONOCYTES % (AUTO) 7.4 % (2.0-12.0); NEUTROPHILS # (AUTO) 3.2 K/uL (1.8-8.9); NEUTROPHILS % (AUTO) 54.1 % (43.0-81.0); PLATELET COUNT (AUTO) 184 K/uL (150-450); RED BLOOD CELL COUNT(AUTO) 2.79 MIL/uL (4.0-5.2); RED CELL DISTRIBUTION WIDTH 15.3 % (11.5-15.0)
[2023-05-17 10:57] LABS: CALCIUM, SERUM 8.8 mg/dL (8.5-10.1); CARBON DIOXIDE 24 mmol/L (21-32); CHLORIDE 109 mmol/L (98-107); CREATININE 0.5 mg/dL (0.6-1.3); GLUCOSE 85 mg/dL (74-106); MAGNESIUM 1.4 mg/dL (1.8-2.4); POTASSIUM 3.2 mmol/L (3.5-5.1); SODIUM SERUM 140 mmol/L (136-145); UREA NITROGEN, BLOOD 14 mg/dL (7-18)
[2023-05-17 16:00] VITALS: BP 97/70; TEMP 98.2; O2SAT 96
[2023-05-17] MEDS: Magnesium 1GM/D5W 100ML PREMIX 100 ML IV SCH (18:47)
[2023-05-17] MEDS: POTASSIUM CHLORIDE 20 MEQ POWDER PACKET PO ONE (18:47)
[2023-05-17 20:00] VITALS: BP 123/69; TEMP 98.8; O2SAT 99
[2023-05-18 07:00] VITALS: BP 135/64; TEMP 97.5; O2SAT 96
[2023-05-18 07:09] LABS: BASOPHILS % (AUTO) 0.3 % (0.0-2.0); EOSINOPHILS # (AUTO) 0.2 K/uL (0.0-0.7); EOSINOPHILS % (AUTO) 2.8 % (0.0-6.0); HEMATOCRIT 29 % (33-45); HEMOGLOBIN 9.8 g/dL (11.5-14.8); LYMPHOCYTES # (AUTO) 2.1 K/uL (0.8-4.8); LYMPHOCYTES % (AUTO) 26.6 % (20.0-44.0); MEAN CORPUSCULAR HEMOGLOBIN 34 PG (26.0-33.0); MEAN CORPUSCULAR HGB CONC 34 g/dl (31.0-36.0); MEAN CORPUSCULAR VOLUME 101 fL (82-100); MONOCYTES # (AUTO) 0.5 K/uL (0.1-1.30); NEUTROPHILS % (AUTO) 64.3 % (43.0-81.0); PLATELET COUNT (AUTO) 192 K/uL (150-450); RED BLOOD CELL COUNT(AUTO) 2.86 MIL/uL (4.0-5.2); RED CELL DISTRIBUTION WIDTH 15.3 % (11.5-15.0); WHITE BLOOD COUNT (AUTO) 7.8 K/uL (4.3-11.0)
[2023-05-18 07:47] LABS: CALCIUM, SERUM 7.9 mg/dL (8.5-10.1); CARBON DIOXIDE 25 mmol/L (21-32); CHLORIDE 103 mmol/L (98-107); CREATININE 0.5 mg/dL (0.6-1.3); GLUCOSE 99 mg/dL (74-106); MAGNESIUM 2.4 mg/dL (1.8-2.4); PHOSPHORUS 2.9 mg/dL (2.5-4.9); POTASSIUM 3.5 mmol/L (3.5-5.1); SODIUM SERUM 136 mmol/L (136-145); UREA NITROGEN, BLOOD 13 mg/dL (7-18)
[2023-05-18 16:00] VITALS: BP 132/84; TEMP 97.6; O2SAT 98
[2023-05-18] MEDS: ACETAMINOPHEN 325 MG TABLET PO PRN (19:56)
[2023-05-18] MEDS: MEROPENEM 1 G in IV NS 0.9% 100 ML IV SCH (20:06)
[2023-05-18 22:00] VITALS: TEMP 99.9
[2023-05-18 22:59] VITALS: BP 138/77; TEMP 100.2; O2SAT 96
[2023-05-19 07:00] VITALS: BP 120/80; TEMP 99; O2SAT 98
[2023-05-19 07:18] LABS: BASOPHILS % (AUTO) 0.4 % (0.0-2.0); EOSINOPHILS # (AUTO) 0.2 K/uL (0.0-0.7); EOSINOPHILS % (AUTO) 3.1 % (0.0-6.0); HEMATOCRIT 28 % (33-45); HEMOGLOBIN 9.8 g/dL (11.5-14.8); LYMPHOCYTES # (AUTO) 2.2 K/uL (0.8-4.8); LYMPHOCYTES % (AUTO) 30.8 % (20.0-44.0); MEAN CORPUSCULAR HEMOGLOBIN 35 PG (26.0-33.0); MEAN CORPUSCULAR HGB CONC 35 g/dl (31.0-36.0); MEAN CORPUSCULAR VOLUME 100 fL (82-100); MONOCYTES # (AUTO) 0.4 K/uL (0.1-1.30); MONOCYTES % (AUTO) 6.3 % (2.0-12.0); NEUTROPHILS # (AUTO) 4.2 K/uL (1.8-8.9); NEUTROPHILS % (AUTO) 59.4 % (43.0-81.0); PLATELET COUNT (AUTO) 175 K/uL (150-450); RED BLOOD CELL COUNT(AUTO) 2.84 MIL/uL (4.0-5.2); RED CELL DISTRIBUTION WIDTH 14.9 % (11.5-15.0); WHITE BLOOD COUNT (AUTO) 7.1 K/uL (4.3-11.0)
[2023-05-19 08:08] LABS: CALCIUM, SERUM 9.4 mg/dL (8.5-10.1); CARBON DIOXIDE 29 mmol/L (21-32); CHLORIDE 104 mmol/L (98-107); CREATININE 0.5 mg/dL (0.6-1.3); GLUCOSE 117 mg/dL (74-106); MAGNESIUM 1.8 mg/dL (1.8-2.4); POTASSIUM 3.5 mmol/L (3.5-5.1); SODIUM SERUM 137 mmol/L (136-145); UREA NITROGEN, BLOOD 16 mg/dL (7-18)
[2023-05-19 16:00] VITALS: BP 167/84; TEMP 98.8; O2SAT 97
[2023-05-19 17:22] LABS: HIV-1 p24 ANTIGEN NON REACTIVE (NONREACTIVE); HIV-1/2 ANTIBODY NON REACTIVE (NONREACTIVE)
[2023-05-19 20:00] VITALS: BP 119/88; TEMP 98.6; O2SAT 94
[2023-05-20 07:00] VITALS: BP 111/55; TEMP 97.5; O2SAT 95
[2023-05-20 07:23] LABS: BASOPHILS % (AUTO) 0.3 % (0.0-2.0); EOSINOPHILS # (AUTO) 0.2 K/uL (0.0-0.7); EOSINOPHILS % (AUTO) 3.4 % (0.0-6.0); HEMATOCRIT 27 % (33-45); HEMOGLOBIN 9.1 g/dL (11.5-14.8); LYMPHOCYTES # (AUTO) 2.7 K/uL (0.8-4.8); LYMPHOCYTES % (AUTO) 44.4 % (20.0-44.0); MEAN CORPUSCULAR HEMOGLOBIN 34 PG (26.0-33.0); MEAN CORPUSCULAR HGB CONC 34 g/dl (31.0-36.0); MEAN CORPUSCULAR VOLUME 101 fL (82-100); MONOCYTES # (AUTO) 0.5 K/uL (0.1-1.30); MONOCYTES % (AUTO) 8.2 % (2.0-12.0); NEUTROPHILS # (AUTO) 2.6 K/uL (1.8-8.9); NEUTROPHILS % (AUTO) 43.7 % (43.0-81.0); PLATELET COUNT (AUTO) 178 K/uL (150-450); RED BLOOD CELL COUNT(AUTO) 2.65 MIL/uL (4.0-5.2); RED CELL DISTRIBUTION WIDTH 15.6 % (11.5-15.0); WHITE BLOOD COUNT (AUTO) 6.1 K/uL (4.3-11.0)
[2023-05-20 08:10] LABS: CALCIUM, SERUM 9.1 mg/dL (8.5-10.1); CARBON DIOXIDE 30 mmol/L (21-32); CHLORIDE 108 mmol/L (98-107); CREATININE 0.7 mg/dL (0.6-1.3); GLUCOSE 100 mg/dL (74-106); MAGNESIUM 1.7 mg/dL (1.8-2.4); PHOSPHORUS 3.5 mg/dL (2.5-4.9); POTASSIUM 3.3 mmol/L (3.5-5.1); SODIUM SERUM 142 mmol/L (136-145); UREA NITROGEN, BLOOD 22 mg/dL (7-18)
[2023-05-20] MEDS: POTASSIUM CHLORIDE 20 MEQ TAB.PRT.SR PO ONE (12:16)
[2023-05-20] MEDS: MAGNESIUM OXIDE 400 MG TABLET PO ONE (12:16)
[2023-05-20 13:00] VITALS: BP 143/69; TEMP 97.4; O2SAT 99
[2023-05-20 16:00] VITALS: BP 126/60; TEMP 97.9; O2SAT 98
[2023-05-20 20:00] VITALS: BP 131/77; TEMP 98.8; O2SAT 96
[2023-05-21 06:38] LABS: BASOPHILS % (AUTO) 0.5 % (0.0-2.0); EOSINOPHILS # (AUTO) 0.2 K/uL (0.0-0.7); EOSINOPHILS % (AUTO) 3.8 % (0.0-6.0); HEMATOCRIT 30 % (33-45); HEMOGLOBIN 10.1 g/dL (11.5-14.8); LYMPHOCYTES # (AUTO) 2.9 K/uL (0.8-4.8); LYMPHOCYTES % (AUTO) 45.8 % (20.0-44.0); MEAN CORPUSCULAR HEMOGLOBIN 34 PG (26.0-33.0); MEAN CORPUSCULAR HGB CONC 34 g/dl (31.0-36.0); MEAN CORPUSCULAR VOLUME 101 fL (82-100); MONOCYTES # (AUTO) 0.5 K/uL (0.1-1.30); MONOCYTES % (AUTO) 7.8 % (2.0-12.0); NEUTROPHILS # (AUTO) 2.7 K/uL (1.8-8.9); NEUTROPHILS % (AUTO) 42.1 % (43.0-81.0); PLATELET COUNT (AUTO) 200 K/uL (150-450); RED BLOOD CELL COUNT(AUTO) 2.97 MIL/uL (4.0-5.2); RED CELL DISTRIBUTION WIDTH 15.7 % (11.5-15.0); WHITE BLOOD COUNT (AUTO) 6.4 K/uL (4.3-11.0)
[2023-05-21 06:59] LABS: CALCIUM, SERUM 10.1 mg/dL (8.5-10.1); CREATININE 0.7 mg/dL (0.6-1.3); POTASSIUM 3.8 mmol/L (3.5-5.1)
[2023-05-21 08:00] VITALS: BP 144/71; TEMP 97.7; O2SAT 98
[2023-05-21 09:06] VITALS: BP 149/78; TEMP 97.7; O2SAT 98
[2023-05-21 16:34] VITALS: BP 135/87; TEMP 100.1; O2SAT 97
[2023-05-21 20:00] VITALS: BP 105/83; TEMP 98.4; O2SAT 95
[2023-05-21 21:55] VITALS: BP 105/83; TEMP 98.4; O2SAT 95
[2023-05-22 07:09] LABS: BASOPHILS % (AUTO) 0.4 % (0.0-2.0); EOSINOPHILS # (AUTO) 0.1 K/uL (0.0-0.7); EOSINOPHILS % (AUTO) 3.1 % (0.0-6.0); HEMATOCRIT 30 % (33-45); HEMOGLOBIN 10.2 g/dL (11.5-14.8); LYMPHOCYTES # (AUTO) 2.3 K/uL (0.8-4.8); MEAN CORPUSCULAR HEMOGLOBIN 34 PG (26.0-33.0); MEAN CORPUSCULAR HGB CONC 34 g/dl (31.0-36.0); MEAN CORPUSCULAR VOLUME 101 fL (82-100); MONOCYTES # (AUTO) 0.4 K/uL (0.1-1.30); MONOCYTES % (AUTO) 8.2 % (2.0-12.0); NEUTROPHILS # (AUTO) 1.9 K/uL (1.8-8.9); NEUTROPHILS % (AUTO) 40.3 % (43.0-81.0); PLATELET COUNT (AUTO) 193 K/uL (150-450); RED BLOOD CELL COUNT(AUTO) 2.99 MIL/uL (4.0-5.2); RED CELL DISTRIBUTION WIDTH 15.3 % (11.5-15.0); WHITE BLOOD COUNT (AUTO) 4.8 K/uL (4.3-11.0)
[2023-05-22 07:29] LABS: CALCIUM, SERUM 9.8 mg/dL (8.5-10.1); CREATININE 0.7 mg/dL (0.6-1.3); MAGNESIUM 1.9 mg/dL (1.8-2.4); PHOSPHORUS 2.9 mg/dL (2.5-4.9); POTASSIUM 3.1 mmol/L (3.5-5.1)
[2023-05-22 08:40] VITALS: BP 158/67; TEMP 98.7; O2SAT 97
[2023-05-22] MEDS: POTASSIUM CHLORIDE 20 MEQ TAB.PRT.SR PO SCH (09:32)
[2023-05-22 20:00] VITALS: BP 126/77; TEMP 98.2; O2SAT 95
[2023-05-22] MEDS: MEROPENEM 1 G in IV NS 0.9% 100 ML IV SCH (21:38)
[2023-05-23 07:21] LABS: BASOPHILS % (AUTO) 0.4 % (0.0-2.0); EOSINOPHILS # (AUTO) 0.2 K/uL (0.0-0.7); EOSINOPHILS % (AUTO) 2.7 % (0.0-6.0); HEMATOCRIT 27 % (33-45); HEMOGLOBIN 9.3 g/dL (11.5-14.8); LYMPHOCYTES # (AUTO) 2.9 K/uL (0.8-4.8); MEAN CORPUSCULAR HEMOGLOBIN 35 PG (26.0-33.0); MEAN CORPUSCULAR HGB CONC 34 g/dl (31.0-36.0); MEAN CORPUSCULAR VOLUME 101 fL (82-100); MONOCYTES # (AUTO) 0.4 K/uL (0.1-1.30); MONOCYTES % (AUTO) 7.1 % (2.0-12.0); NEUTROPHILS # (AUTO) 2.6 K/uL (1.8-8.9); NEUTROPHILS % (AUTO) 42.8 % (43.0-81.0); PLATELET COUNT (AUTO) 179 K/uL (150-450); RED CELL DISTRIBUTION WIDTH 15.1 % (11.5-15.0); WHITE BLOOD COUNT (AUTO) 6.1 K/uL (4.3-11.0)
[2023-05-23 07:30] VITALS: BP 141/55; TEMP 97.5; O2SAT 94
[2023-05-23 07:52] LABS: CALCIUM, SERUM 9.7 mg/dL (8.5-10.1); CREATININE 0.6 mg/dL (0.6-1.3); MAGNESIUM 2.1 mg/dL (1.8-2.4); POTASSIUM 3.1 mmol/L (3.5-5.1)
[2023-05-23] MEDS: POTASSIUM CHLORIDE 20 MEQ TAB.PRT.SR PO SCH (10:23)
[2023-05-23] MEDS ORDERED: POTASSIUM CHLORIDE 20 MEQ TAB.PRT.SR PO SCH (10:30)
[2023-05-23 16:00] VITALS: BP 144/131; TEMP 98.2; O2SAT 96
[2023-05-23 20:36] VITALS: BP 151/67; TEMP 99; O2SAT 97
[2023-05-24] VITALS: BP 113/58; TEMP 98.1; O2SAT 98
[2023-05-24 03:55] VITALS: BP 130/65; TEMP 98.1; O2SAT 98
[2023-05-24 08:53] VITALS: BP 124/55; TEMP 97.5; O2SAT 90
== END 2023-05-24 16:24 | disposition home health service (06) | DRG 640 ==
LOC: ER 12:48 → MED 18:01
PROVIDERS: ADMIT Nurse Practitioner Family; ATTEND Internal Medicine
DX: E86.0 Dehydration (principal); J18.9 Pneumonia, unspecified organism; D68.59 Other primary thrombophilia; J98.11 Atelectasis; N39.0 Urinary tract infection, site not specified; E44.0 Moderate protein-calorie malnutrition; F03.93 Unspecified dementia, unspecified severity, with mood disturbance; G93.49 Other encephalopathy; E87.20 Acidosis, unspecified; E11.9 Type 2 diabetes mellitus without complications; Z20.822 Contact with and (suspected) exposure to COVID-19; I10 Essential (primary) hypertension; Z90.49 Acquired absence of other specified parts of digestive tract; Z88.0 Allergy status to penicillin; Z88.6 Allergy status to analgesic agent; Z88.2 Allergy status to sulfonamides; Z88.5 Allergy status to narcotic agent; Z91.041 Radiographic dye allergy status; B96.89 Other specified bacterial agents as the cause of diseases classified elsewhere; J98.4 Other disorders of lung; R79.89 Other specified abnormal findings of blood chemistry; E83.52 Hypercalcemia; E88.09 Other disorders of plasma-protein metabolism, not elsewhere classified; F32.A Depression, unspecified; M81.0 Age-related osteoporosis without current pathological fracture; Z74.01 Bed confinement status; L89.896 Pressure-induced deep tissue damage of other site; Z87.440 Personal history of urinary (tract) infections; Z86.19 Personal history of other infectious and parasitic diseases; D64.9 Anemia, unspecified; E87.6 Hypokalemia; Z79.84 Long term (current) use of oral hypoglycemic drugs; Z79.899 Other long term (current) drug therapy
CPT/HCPCS: 36415; 71045-TC; 80048-TC; 80076-TC; 81001; 82962-TC; 83605-TC; 83735-TC; 84100-TC; 84484-TC; 85025-TC; 85730-TC; 86803; 87040-TC; 87086-TC; 87806; 92526; 92611-TC; 97112-TC; 97530-TC; A4216; A4223; A6403; G0378; J1650; J1815; J1956; J2185; J3475; J3490; J7030; J7040